=== PATIENT | male | born 1955 | race Caucasian/White ===

== ENCOUNTER 2020-05-27 21:04 | Emergency (ER) | payer OTHER, SELFPAY ==
[2020-05-27 21:53] VITALS: BP 161/101; PULSE 65; RESP 20; TEMP 36.8; O2SAT 95
--- NOTE | 2020-05-27 23:17 | ED.DENTAL ---
HPI - Dental/Oral General Chief complaint: Dental/Oral Stated complaint: tooth ache Time Seen by Provider: 05/27/20 22:21 Source: patient Mode of arrival: ambulatory Limitations: no limitations History of Present Illness HPI Narrative: This patient is a 64 year old male who presents for evaluation right lower jaw pain. He describes throbbing pain to right lower jaw. His pain is a worse with eating. He also reports pain is cause right facial pain. He was unable to get into his dentist so his PCP started him on Augmentin today. He took this dose 3 hours ago with ibuprofen. He states he was having such bad pain and his would not stop talking so he came to ER . He denies chest pain, sob, nausea, or vomiting. Related Data Home Medications Medication Instructions Recorded Confirmed amoxicillin-pot clavulanate 1 tablet PO BID 05/27/20 Allergies Allergy/AdvReac Type Severity Reaction Status Date / Time No Known Allergies Allergy Verified 05/27/20 22:02 Review of Systems Review of Systems: All systems reviewed & are unremarkable except as noted in HPI and below Constitutional: Constitutional: Denies chills and Denies fever(s) [facility] Past Medical History Medical History (Updated 05/28/20 @ 00:19 by Laura Cruz MD) Diverticulitis Social History Social History (Updated 05/28/20 @ 00:16 by Laura Cruz MD) Smoking status: Never smoker Gender identity (if verbalized by the patient): Male Exam Const: General: no acute distress and alert Orientation/consciousness: patient oriented x3 HENMT: Head: normocephalic and atraumatic Ears: TM's normal bilaterally General nose exam: Normal external nose present Face and sinus: face symmetric Mouth: Yes lip normal, Yes tongue normal, Yes moist mucous membranes, No trismus and No restricted motion Teeth and gingiva: abnormal tooth and associated gingiva and caries (31, tooth 28 missing, no abscess) Course Reevaluation(s) Reevaluation #1: I discussed with patient that he will need to follow up with dentist and continue his augmentin. No abscess at this time Date: 05/28/20 Time: 00:17 Vital Signs Vital signs: Vital Signs Temperature 98.3 F 05/27/20 21:53 Pulse Rate 65 05/27/20 21:53 Respiratory Rate 20 05/27/20 21:53 Blood Pressure 161/101 H 05/27/20 21:53 Pulse Oximetry 95 05/27/20 21:53 Temperature 98.3 F 05/27/20 21:53 Pulse Rate 76 05/28/20 00:30 Respiratory Rate 18 05/28/20 00:30 Blood Pressure 153/84 H 05/28/20 00:30 Pulse Oximetry 97 05/28/20 00:30 Discharge Plan Discharge Clinical Impression: Dental caries, Toothache Patient Disposition: Home, Self-Care Condition: Stable Instructions: Antibiotic Form, Dental Abscess (ED), Toothache (ED) Additional Instructions: Please continue with your antibiotics as prescribed and call your dentist. You can also try to see if Dr. Terence Wilson can get you in sooner. Call [facility] at [phone] Prescriptions: New hydrocodone-acetaminophen [[place]] 5-325 mg tablet 1 tablet PO Q6H PRN (Reason: pain) Qty: 7 RF: 0 No Action amoxicillin-pot clavulanate 875-125 mg tablet 1 tablet PO BID RF: 0 Follow-up/Referrals: Santosh,FABIANO Gonzáles [Primary Care Provider] - Stand Alone Forms: Work/School Release IP Discharge Date/Time: 05/28/20 00:30
[2020-05-27] MEDS: KETOROLAC (*BKC) 60 MG/2 ML VIAL IM (23:50)
[2020-05-27] MEDS: ONDANSETRON HCL ODT 4 MG TABLET PO (23:51)
[2020-05-28 00:30] VITALS: BP 153/84; PULSE 76; RESP 18; O2SAT 97
== END 2020-05-28 00:30 | disposition home or self-care (01) ==
PROVIDERS: Emergency Provider General Practice; PCP Nurse Practitioner Adult Health
DX: K02.9 Dental caries, unspecified (principal)
CPT/HCPCS: 96372; 99283; A9270; J1885